=== PATIENT | female | born 1950 | race Caucasian/White ===

== ENCOUNTER 2024-04-25 14:31 | Emergency (ER) | payer MEDICARE, SELFPAY ==
--- NOTE | ~2024-04-25 | US_ITS ---
EXAMINATION: US ABDOMEN LIMITED CLINICAL INFORMATION: Right upper quadrant pain. COMPARISON: None available. TECHNIQUE: Real-time imaging of the right upper quadrant abdominal viscera. FINDINGS: PANCREAS: Tail obscured. LIVER: The liver is normal in size. The liver contour is normal. Parenchymal echogenicity is normal. No focal hepatic lesion. There is no intrahepatic biliary duct dilatation seen. GALLBLADDER: Wall echo shadow complex. The gallbladder is contracted with multiple shadowing stones. Positive sonographic Powell's sign. COMMON BILE DUCT: Normal in caliber measuring 0.6 cm in diameter. RIGHT KIDNEY: No hydronephrosis. No renal calculi or focal parenchymal lesions. The kidney measures 11.4 cm in maximum dimension. FREE FLUID: None. US/US abdomen limited IMPRESSION: Gallbladder contracted with multiple shadowing stones. Positive sonographic Powell sign. Findings are suggestive of acute cholecystitis. Consider surgical consultation.
--- NOTE | ~2024-04-25 | CT_ITS ---
EXAMINATION: CT ABDOMEN AND PELVIS WITHOUT CONTRAST CLINICAL INFORMATION: Right-sided pain COMPARISON: Chest radiograph and ultrasound abdomen 04/25/2024 TECHNIQUE: Multidetector volumetric imaging was performed from the superior aspect of the liver through the pubic symphysis. Sagittal and coronal reformatted images were obtained on the technologist's workstation. This CT examination was performed using dose optimization techniques as appropriate, variously including the following: *Automated exposure control *Adjustment of mA and/or kV according to patient size (this includes techniques or standardized protocols for targeted exams where dose is matched to indication/reason for exam; i.e. extremities or head) *Use of iterative reconstruction technique DLP: 679 mGy-cm FINDINGS: LUNG BASES: The visualized lung bases are unremarkable. LIVER, GALLBLADDER, AND BILIARY TREE: The liver is normal in size, shape, and attenuation. No focal hepatic lesion or biliary ductal dilatation is present. The gallbladder is contracted and filled with small layering calculi. No evidence of gallbladder wall thickening or obvious pericholecystic inflammatory changes. PANCREAS: Unremarkable. SPLEEN: Unremarkable. ADRENAL GLANDS: Unremarkable. KIDNEYS AND URETERS: The kidneys are normal in size, shape, and attenuation. No hydronephrosis, hydroureter, or calculi seen. No perinephric stranding. BLADDER: Unremarkable. GASTROINTESTINAL TRACT: Extensive colonic diverticulosis is noted throughout the colon. The small and large bowel are otherwise unremarkable. The appendix is unremarkable and of normal caliber. A tiny appendicolith is present at the tip. No periappendiceal inflammatory changes are seen.. ABDOMINAL WALL: Is a tiny periumbilical hernia seen containing only fat. No other hernias. LYMPH NODES: No retroperitoneal lymphadenopathy. VASCULAR: Very mild atherosclerotic changes are present in the aorta and iliofemoral vessels. There is no evidence of an abdominal aortic aneurysm. PELVIC VISCERA: Unremarkable. OSSEOUS STRUCTURES: Degenerative changes are present throughout the spine most marked at L1-L2 and in the lower thoracic spine. CT/CT abdomen pelvis wo IV con IMPRESSION: 1. A cause for the patient's right-sided pain has not been found. 2. Cholelithiasis without cholecystitis. 3. Extensive colonic diverticulosis without diverticulitis. 4. Degenerative changes in the spine. Fleischner guidelines were followed.
--- NOTE | ~2024-04-25 | XR_ITS ---
EXAMINATION: XR CHEST CLINICAL INFORMATION: Right lower rib pain COMPARISON: None available. TECHNIQUE: Frontal view of the chest was obtained. FINDINGS: No significant abnormality is noted involving the heart, lungs, mediastinum, bony thorax or soft tissues. XR/XR chest 1V IMPRESSION: Unremarkable examination.
--- NOTE | 2024-04-25 14:41 | ED.ABDPAIN ---
HPI - Abdominal Pain General Chief Complaint: Abdominal Pain Stated Complaint: gallbladder pain ? Time Seen by Provider: 04/25/24 22:42 Source: patient Mode of arrival: ambulatory Limitations: no limitations History of Present Illness ED Provider: neisha BENITO narrative: Patient no significant past medical history has not seen a PCP for sometimes comes here for pain in right upper quadrant since yesterday went to see urgent care doctor who advised to go to hospital patient does have pain which gets worse on palpation and taking deep breath localized in right upper quadrant was nauseated yesterday but no vomiting never had similar pain in the past appetite is normal no fever no chills patient had ultrasound done prior to my evaluation showed contracted gallbladder with gallstones with normal WBC count and liver functions Related Data Previous Rx's ?Medication ?Instructions ?Recorded cefuroxime axetil 250 mg tablet 250 mg PO BID 7 days #14 tabs 04/26/24 tramadol 50 mg tablet 50 mg PO Q6H PRN pain #20 tabs 04/26/24 Allergies Allergy/AdvReac Type Severity Reaction Status Date / Time No Known Allergies Allergy Verified 04/25/24 14:47 Review of Systems Review of Systems Yes all other systems are reviewed and are negative [facility] Social History Social History Smoked in Last 30 Days: No Use of substances other than those prescribed or required for medical reasons: No Advance Directives: No Advance Directives Information Provided: No Physical Exam ED Vital Signs: Vital Signs - 24 hr 04/25/24 14:42 04/25/24 19:47 04/25/24 21:33 Temperature 96.3 F L 97.5 F 97.7 F Pulse Rate 95 75 87 Respiratory Rate 16 18 18 Blood Pressure 144/68 H 165/92 H 170/86 H Pulse Oximetry 98 97 98 Oxygen Delivery Method Room Air Room Air Room Air 04/26/24 00:13 04/26/24 01:37 Temperature 97.8 F 98.0 F Pulse Rate 76 74 Respiratory Rate 18 16 Blood Pressure 152/79 H 148/78 H Pulse Oximetry 96 97 Oxygen Delivery Method Room Air Room Air BMI result Body Mass Index 31.6 Appearance: Alert. Oriented X3. No acute distress. Eyes: PERRLA, No Nystagmus ENT: Pharynx normal. Oral Mucosa moist Neck: Normal inspection. Neck supple. CVS: Normal heart rate and rhythm. Pulses normal. Respiratory: No respiratory distress. Tender right lower ribs in mid clavicular line++ Equal air entry bilateral, no wheezing/rales/rhonchi Abdomen: Soft and mild tenderness right upper quadrant. Bowel sounds are present, no mass palpable, no CVA tenderness Skin: Skin warm and dry. Normal skin color. Normal skin turgor. Extremities: No lower extremity edema. No calf tenderness Neuro: Oriented X 3. No motor deficit. No sensory deficit.No cerebellar signs , cranial nerves II-XII intact Course Course Course Narrative: This is an RME: Additional HPI, ROS, PE not included below will be deferred to primary provider. RME assessment and note performed by: Anju Jacques PA-C This is a 27-[id number]-female, with a hx of thyroid disease and hypertension, who presents to the ER with complaints of RUQ pain. Reporting that she has RUQ pain with deep inspiration. She was seen at urgent care yesterday as she had right shoulder and back pain and nausea. Back pain and has resolved. Took ASA with some relief. Plan: Labs, UA, US RUQ Medical Decision Making Medical Decision Making MDM Narrative: Patient's right upper abdominal pain workup showed gallstones without any cholecystitis also noted to her UTI without any kidney stone will prescribe Ceftin advised to follow with surgeon for further management for the gallstone Differential Diagnosis Differential Diagnoses: The differential diagnosis associated with the presentation includes Kidney stone/gallbladder stone/UTI Admission/Observation Consideration of admission/observation: Escalation of care including admission/observation considered Lab Data [facility] Lab Attestation statement: I reviewed the patient's lab results. 04/25/24 16:54 04/25/24 16:54 Labs: Lab Results 04/25/24 04/25/24 Range/Units 16:54 23:25 WBC 7.5 (4.8-10.8) X10*3/uL RBC 4.06 L (4.20-5.50) X10*6/uL Hgb 13.2 (12.0-16.0) g/dl Hct 38.0 (37.0-47.0) % MCV 93.6 (80.0-98.0) fL MCH 32.5 (27.0-33.0) pg MCHC 34.7 (31.0-35.0) g/dl RDW 12.7 (11.0-16.0) % Plt Count 219 (160-400) X10*3/uL MPV 10.4 (9.4-12.3) fL Immature Gran % (Auto) 0.4 (0.0-0.4) % Neut % (Auto) 56.0 (45-73) % Lymph % (Auto) 30.8 (20-40) % Monroe % (Auto) 11.2 H (2-11) % Eos % (Auto) 1.3 (0-4) % Baso % (Auto) 0.3 (0-2) % Lymph # (Auto) 2.3 (1.2-4.9) X10*3/uL Monroe # (Auto) 0.8 (0.1-1.2) X10*3/uL Eos # (Auto) 0.1 (0.0-0.4) X10*3/uL Baso # (Auto) 0.0 (0.0-0.2) X10*3/uL Abs Immat Gran (auto) 0.03 (0.00-0.03) X10*3/uL Absolute Neuts (auto) 4.2 (2.0-8.3) x10*3/uL Absolute Nucleated RBC 0.000 (0.0-0.012) X10*3/uL Nucleated RBC % (auto) 0.0 (0.0-0.2) /100WBC Sodium 135 (135-145) mmol/L Potassium 3.9 (3.3-5.1) mmol/L Chloride 101 (96-108) mmol/L Carbon Dioxide 24 (22-29) mmol/L Anion Gap 14 (12-20) BUN 19 H (9-16) mg/dL Creatinine 0.76 (0.5-1.4) mg/dL Estim Creat Clear Calc 76.8 Estimated GFR > 60 Random Glucose 133 H (60-115) mg/dL Calcium 9.4 (8.4-10.2) mg/dL Magnesium 2.3 (1.6-2.6) mg/dL Total Bilirubin 0.2 (0.0-1.0) mg/dL Direct Bilirubin < 0.2 (0.0-0.5) mg/dL AST 21 (5-31) U/L ALT 17 (0-31) U/L Alkaline Phosphatase 101 (39-117) U/L Troponin I High Sens < 2.7 (<3.5-17.0) ng/L Total Protein 7.0 (6.5-8.0) g/dL Albumin 4.0 (3.5-5.0) g/dL Lipase 32 (8-78) U/L Urine Color Yellow Urine Appearance Clear Urine pH 6.0 (5.0-9.0) Ur Specific [place] <= 1.005 (1.005-1.025) Urine Protein Negative (Neg-Trace) mg/dL Urine Glucose (UA) Negative (Negative) mg/dL Urine Ketones Negative (Negative) mg/dL Urine Blood Moderate (2+) H (Negative) Urine Nitrite Negative (Negative) Ur Leukocyte Esterase Moderate (2+) H (Negative) Urine RBC 3-5 H (0-2) /HPF Urine WBC 11-20 H (0-5) /HPF Ur Squamous Epith Cells 0-2 (0-2) /HPF Urine Bacteria None Seen (None Seen) Hyaline Casts 0-2 (0-2) /LPF Independent Interpretation I performed an independent interpretation of an: Ultrasound and CT Scan Radiology Impression Discussion of test interpretation with radiology: I have reviewed the radiologist's reading. Medications Administered Discontinued Medications Generic Name Dose Route Start Last Admin Trade Name Freq PRN Reason Stop Dose Admin Cefuroxime Axetil 500 mg 04/26/24 01:13 04/26/24 01:33 Cefuroxime Axetil 500 Mg Tablet PO 04/26/24 01:14 500 mg ONCE ONE Administration Ketorolac Tromethamine 30 mg 04/25/24 23:05 04/25/24 23:19 Ketorolac Tromethamine 30 Mg/Ml Vial IVPUSH 04/25/24 23:06 30 mg ONCE ONE Administration Discharge Plan Discharge Clinical Impression: Acute UTI, Gallstone Patient Disposition: Home, Self-Care Instructions: Gallstones (ED), Urinary Tract Infection in Older Adults (ED) Additional Instructions: Drink plenty of fluids Avoid fried foods Take antibiotic for urinary tract infection You have gallstones but at this time gallbladder is not inflamed Follow up with surgeon as advised Report to the ER if worsening of pain in right upper abdomen Prescriptions: New cefuroxime axetil 250 mg tablet 250 mg PO BID 7 Days Qty: 14 0RF tramadol 50 mg tablet 50 mg PO Q6H PRN (Reason: pain) Qty: 20 0RF Referrals: Jose De Los Santos MD [Physician] - 2 weeks Interventions: ED Discharge Assessment Last Done: 04/26/24 01:37 Discharge Date/Time: 04/26/24 01:39 Print Language: Niuean
[2024-04-25 14:42] VITALS: BP 144/68; PULSE 95; RESP 16; TEMP 35.7; O2SAT 98; BMI 31.6
--- NOTE | 2024-04-25 14:43 | ECG_ITS ---
Test Reason : ABD PAIN Blood Pressure : / mmHG Vent. Rate : 092 BPM Atrial Rate : 092 BPM P-R Int : 168 ms QRS Dur : 086 ms QT Int : 318 ms P-R-T Axes : 034 068 058 degrees QTc Int : 393 ms Normal sinus rhythm Nonspecific T wave abnormality Abnormal ECG No previous ECGs available Referred By: Anju Jacques Electronically Signed By:DAE KYLE MD
--- NOTE | 2024-04-25 16:56 | MHC.EDTECH ---
Patient ekg taken and was read by Provider ,blood drawn and sent to lab .
[2024-04-25 16:58] LABS: MANUAL DIFF FLAG NO
[2024-04-25 17:01] LABS: Basophils Percent Auto 0.3 % (0-2); Eosinophils Absolute Auto 0.1 X10*3/uL (0.0-0.4); Eosinophils Percent Auto 1.3 % (0-4); Hemoglobin 13.2 g/dl (12.0-16.0); Imm Gran Abs Auto 0.03 X10*3/uL (0.00-0.03); Imm Gran Pct Auto 0.4 % (0.0-0.4); Lymphocytes Absolute Auto 2.3 X10*3/uL (1.2-4.9); Lymphocytes Percent Auto 30.8 % (20-40); Mean Corpuscular HGB Conc 34.7 g/dl (31.0-35.0); Mean Corpuscular Hemoglobin 32.5 pg (27.0-33.0); Mean Corpuscular Volume 93.6 fL (80.0-98.0); Mean Platelet Volume 10.4 fL (9.4-12.3); Monocytes Absolute Auto 0.8 X10*3/uL (0.1-1.2); Monocytes Percent Auto 11.2 % (2-11); Neutrophils Absolute Auto 4.2 x10*3/uL (2.0-8.3); Platelet Count 219 X10*3/uL (160-400); Red Blood Count 4.06 X10*6/uL (4.20-5.50); Red Cell Distribution Width 12.7 % (11.0-16.0); White Blood Count 7.5 X10*3/uL (4.8-10.8)
[2024-04-25 17:23] LABS: Alanine Aminotransferase 17 U/L (0-31); Alkaline Phosphatase 101 U/L (39-117); Anion Gap 14 (12-20); Aspartate Amino Transferase 21 U/L (5-31); Bilirubin Direct < 0.2 mg/dL (0.0-0.5); Bilirubin Total 0.2 mg/dL (0.0-1.0); Blood Urea Nitrogen 19 mg/dL (9-16); Calcium 9.4 mg/dL (8.4-10.2); Carbon Dioxide 24 mmol/L (22-29); Chloride 101 mmol/L (96-108); Creatinine Clr Calc Pharmacy 76.8; Estimated Glomerular Filt Rate > 60; Glucose Random 133 mg/dL (60-115); Lipase 32 U/L (8-78); Magnesium 2.3 mg/dL (1.6-2.6); Potassium 3.9 mmol/L (3.3-5.1); Sodium 135 mmol/L (135-145); Troponin-I High Sensitivity < 2.7 ng/L (<3.5-17.0)
[2024-04-25 19:47] VITALS: BP 165/92; PULSE 75; RESP 18; TEMP 36.4; O2SAT 97
[2024-04-25 21:33] VITALS: BP 170/86; PULSE 87; RESP 18; TEMP 36.5; O2SAT 98
--- NOTE | 2024-04-25 21:33 | MHC.EDTECH ---
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
[2024-04-25] MEDS: Ketorolac Tromethamine 30 MG/ML VIAL IVPUSH (23:19)
[2024-04-25 23:32] LABS: Appearance Urine Clear; Color Urine Yellow; Glucose Urine UA Negative (Negative); Leukocyte Esterase Urine Moderate (2+) (Negative); Nitrite Urine Negative (Negative); Specific Gravity - Urine <= 1.005 (1.005-1.025); UMIC TRIGGER UACC YES; Urine Blood Moderate (2+) (Negative); Urine Ketones Negative (Negative); Urine Protein Negative (Neg-Trace)
[2024-04-25 23:43] LABS: Bacteria Urine None Seen (None Seen); Hyaline Casts Urine 0-2 /LPF (0-2); Squamous Epithelial Cell Urine 0-2 /HPF (0-2); UACC Culture Trigger YES
[2024-04-26 00:13] VITALS: BP 152/79; PULSE 76; RESP 18; TEMP 36.6; O2SAT 96
[2024-04-26] MEDS: cefuroxime axetiL 500 MG TABLET PO (01:33)
[2024-04-26 01:37] VITALS: BP 148/78; PULSE 74; RESP 16; TEMP 36.7; O2SAT 97
== END 2024-04-26 01:39 | disposition home or self-care (01) ==
PROVIDERS: Physician Assistant Medical; Emergency Provider Internal Medicine
DX: N39.0 Urinary tract infection, site not specified (principal); K80.20 Calculus of gallbladder without cholecystitis without obstruction; R10.11 Right upper quadrant pain
CPT/HCPCS: 36415; 71045; 74176; 76705; 80048; 80076; 81001; 83690; 83735; 84484; 85025; 87086; 93005; 96374; 99284; 99285; J1885

== ENCOUNTER → 2024-04-25 14:43 | Outpatient (BNV) | payer MEDICARE, SELFPAY | PROVIDERS: Emergency Provider Internal Medicine; Visit Provider Internal Medicine Cardiovascular Disease | DX: R94.31 Abnormal electrocardiogram [ECG] [EKG] (principal); R10.9 Unspecified abdominal pain | CPT/HCPCS: 93010 ==

== ENCOUNTER 2024-05-07 09:21 | Outpatient (AMB) | payer MEDICARE, SELFPAY ==
--- NOTE | 2024-05-07 09:33 | MHC.OFFVIS ---
Intake Visit Reasons: Gallstones Intake Note: This patient presents for [facility] emergency department follow-up for gallstones. Patient c/o; reports no recent gallbladder attacks, reports no nausea or vomiting, reports no changes to bowel habits. 04/25/2024- Abd U/S Chest x-ray Abd/pelvis CT Crisis Nurse Required: No Accompanied by: Other Relationship Allergies No Known Allergies Allergy (Verified 05/07/24 09:49) Medication List - Last Reconciled 05/07/24 by Jose De Los Santos MD cefuroxime axetil 250 mg PO BID 7 days tramadol 50 mg PO Q6H PRN HPI HPI Gallstones: Details: 73-year-old female referred by the ER for gallstones. She went to the ER last 04/25/2024 because of what she describes as right-sided abdominal pain. She does state that this seemed to have radiated to her right shoulder. She has had no further episodes since then. She was discharged from the hospital. She says her episode was ?mild?. She seems to have been fairly asymptomatic. She has good oral intake. She also states that she does not have any primary care physician at this time as her insurance company had discontinued coverage with her previous primary care physician. [facility] Medical History (Updated 05/07/24 @ 10:00 by Jose De Los Santos MD) Gallstones Gallstone Thyroid disease Hypertension Surgical History No pertinent past surgical history Family History Other Family history unknown Social History Alcohol intake: never Patient Tobacco Use Status: Never used Tobacco Review of Systems Const Denies chills and Denies fever(s) Card Denies chest pain, Denies dyspnea and Denies dyspnea on exertion Resp Denies cough, Denies dyspnea and Denies dyspnea on exertion GI Denies hematochezia and Denies change in bowel habits Denies hematuria Musc Denies back pain and Denies limited range of motion Neuro Denies focal weakness and Denies convulsions Psych Denies depression and Denies mood swings Physical Exam Const General: comfortable and no acute distress Orientation/consciousness: patient oriented x3 Neck Neck: Yes no lymphadenopathy Resp Auscultation: clear to auscultation bilaterally Cardio Rhythm: regular rhythm GI Palpation (GI): Soft to palpation, nontender and no guarding Neuro General: patient oriented x3 Assessment & Plan Assessment & Plan (1) Gallstones: Code(s): K80.20 - Calculus of gallbladder without cholecystitis without obstruction Category: Medical Plan: She had a CAT scan showing gallstones when she went to the ER last April 25. She does describe her pain to be radiating that that time to the right shoulder. Her symptoms seemed to be consistent with biliary colic She says that she has had no episodes since then. I had a long discussion with her about the option of proceeding with cholecystectomy because of gallstones. I explained the technique of laparoscopic cholecystectomy. I reviewed the risks including but not limited to bleeding, infections, bowel injury, injury to other organs including the bile ducts in the liver, blood clots, pneumonia, bile leak, as well as the benefits and alternatives At this time, she says she does not want to proceed with cholecystectomy for now. She says that her symptoms were mild and she has never had any further episodes. I did tell her that symptoms can be recurrent and acute cholecystitis can occur as well with gallstones She says she understands. She does not have any primary care physician at this time so I will assist her with establishing a relationship with our primary care physicians in [facility]. Coding Level of Care Code New Pt Level 3 (24182) Diagnoses Gallstones K80.20
== END 2024-05-07 09:57 | disposition home or self-care (01) ==
PROVIDERS: Referring Provider Internal Medicine; Visit Provider Surgery
DX: K80.20 Calculus of gallbladder without cholecystitis without obstruction (principal)
CPT/HCPCS: 99204

== ENCOUNTER → 2024-05-07 09:21 | Outpatient (BNVA) | payer MEDICARE, SELFPAY | PROVIDERS: Referring Provider Internal Medicine; Visit Provider Surgery | DX: K80.20 Calculus of gallbladder without cholecystitis without obstruction (principal) | CPT/HCPCS: 99202 ==